=== PATIENT | male | born 1985 ===

== ENCOUNTER 2017-03-08 18:41 | Observation (INO) | payer BC ==
[2017-03-08 18:54] VITALS: BMI 32.5
[2017-03-08] MEDS ORDERED: Sodium Chloride 0.9% 1,000 ML IV STA (19:14)
[2017-03-08 19:43] LABS: BASO # 0.04 K/mm3 (0.0-2.0); BASO % 0.7 % (0.0-3.0); EOS % 0.2 % (1.5-5.0); GRAN # 2.71 (1.4-6.5); HEMOGLOBIN 15.5 g/dL (14.0-18.0); LYMPH # 2.3 (1.2-3.4); LYMPH % 41.6 % (22.0-35.0); MEAN CELL VOLUME 85.4 fl (80.0-105.0); MEAN CORPUSCULAR HEMOGLOBIN 30.1 pg (25.0-35.0); MEAN CORPUSCULAR HGB CONC 35.2 g/dl (31.0-37.0); MEAN PLATELET VOLUME 10.8 fl (7.0-11.0); MONO # 0.5 (0.1-0.6); MONO % 8.5 % (1.0-6.0); RBC 5.15 10^6/uL (3.5-6.1); RED CELL DISTRIBUTION WIDTH 13.2 % (11.5-14.5); WHITE BLOOD COUNT 5.5 10^3/ul (4.5-11.0)
--- NOTE | 2017-03-08 19:43 | ED PDOC ---
Arrival/HPI - General Chief Complaint: GI Problem Time Seen by Provider: 03/08/17 19:13 Historian: Patient - History of Present Illness Narrative History of Present Illness (Text): 03/08/17 19:40 31yr old male presents today with right-sided abdominal pain that started this morning. pt states that he developed sharp right sided pain that has been progressively worsening. pt states pain radiates to right side of back and across left side of abdomen. pt denies dysuria, denies urinary frequency. denies hematuria, denies testicular pain. pt states he has had prior abdominal infection 1 month ago and was hospitalized but cant remember what it was called. pt denies fevers/chills. pt c/o nausea and multiple episodes of vomiting. no other complaints. Past Medical History - Provider Review Nursing Documentation Reviewed: Yes - Travel History Have you recently traveled outside [place] w/in the past 3 mons?: No - Infectious Disease Hx of Infectious Diseases: None - Tetanus Immunization Tetanus Immunization: Unknown - Gastrointestinal Hx Gastroesophageal Reflux: Yes Hx Gastrointestinal Ulcer: Yes Other/Comment: H. Pylori - Psychiatric Hx Substance Use: No - Anesthesia Hx Anesthesia: No Family/Social History - Physician Review Nursing Documentation Reviewed: Yes Family/Social History: Unknown Family HX Smoking Status: Never Smoked Hx Alcohol Use: Yes Frequency of alcohol use: Socially Hx Substance Use: No Allergies/Home Meds Allergies/Adverse Reactions: Allergies No Known Allergies Allergy (Verified 03/08/17 18:54) Home Medications: Home Meds Medication Instructions Recorded Confirmed No Known Home Med 03/08/17 03/08/17 Review of Systems - Review of Systems Constitutional: absent: Fatigue, Fevers Respiratory: absent: SOB, Cough Cardiovascular: absent: Chest Pain, Palpitations Gastrointestinal: Abdominal Pain, Nausea, Vomiting. absent: Constipation, Diarrhea Genitourinary Male: absent: Dysuria, Frequency, Hematuria, Urinary Output Changes Musculoskeletal: Back Pain. absent: Arthralgias, Neck Pain Skin: absent: Rash, Pruritis Neurological: absent: Headache, Dizziness Psychiatric: absent: Anxiety, Depression, Suicidal Ideation Physical Exam Vital Signs Reviewed: Yes Vital Signs Temp Pulse Resp BP Pulse Ox 03/08/17 23:07 60 16 139/69 97 03/08/17 21:10 89 16 131/69 96 03/08/17 18:57 98.3 F 83 18 145/80 98 Temperature: Afebrile Blood Pressure: Normal Pulse: Regular Respiratory Rate: Normal Appearance: Positive for: Well-Appearing, Non-Toxic, Comfortable Pain Distress: None Mental Status: Positive for: Alert and Oriented X 3 - Systems Exam Head: Present: Atraumatic Mouth: Present: Moist Mucous Membranes Neck: Present: Normal Range of Motion Respiratory/Chest: Present: Clear to Auscultation, Good Air Exchange. No: Respiratory Distress, Accessory Muscle Use Cardiovascular: Present: Regular Rate and Rhythm, Normal S1, S2. No: Murmurs Abdomen: Present: Tenderness, Normal Bowel Sounds, Guarding, McBurney's Point Tender, Rovsing's Sign Present. No: Peritoneal Signs, Rebound Genitourinary Male: Present: Normal External Genitalia, Testicle Tenderness ( right sided testicular tenderness), Other (chaparoned by jostin parmar EMT). No: Penile Discharge, Masses, Erythema, Hernias, Testicle Swelling Back: Present: Normal Inspection. No: CVA Tenderness, Midline Tenderness, Paraspinal Tenderness Upper Extremity: Present: Normal Inspection, Normal ROM Lower Extremity: Present: Normal Inspection Neurological: Present: GCS=15, Speech Normal Skin: Present: Warm, Dry, Normal Color. No: Rashes Psychiatric: Present: Alert, Oriented x 3 Medical Decision Making ED Course and Treatment: 03/08/17 19:46 Patient is nontoxic well appearing with stable vital signs presenting with [ severe] abdominal pain CBC wnl CMP wnl Amylase wnl Lipase wnl Urinalysis + ketones, no leukocytes cxr: wnl CAT scan: FINDINGS: Limitations: Motion artifact - mild. Lower thorax: Few subpleural pulmonary nodules and/or scarring, up to 0.3 cm. ABDOMEN: Liver: < 0.5 cm lesion. Gallbladder and bile ducts: No calcified stones. No ductal dilation. Pancreas: No ductal dilation. No mass. Spleen: No splenomegaly. Adrenals: 2.7 x 2.2 x 1.6 cm lesion within RIGHT adrenal gland, indeterminate by CT criteria. Kidneys and ureters: Few small renal calculi. No hydronephrosis. Stomach and bowel: No definite mural thickening. No obstruction. Appendix: Normal caliber. No inflammation. PELVIS: Bladder: Unremarkable. Reproductive: Unremarkable as visualized. ABDOMEN and PELVIS: Intraperitoneal space: No significant fluid collection. No free air. Bones/joints: Bone islands. Early degenerative changes of spine. No acute fracture. Soft tissues: Unremarkable. Vasculature: Unremarkable. No aneurysm. Lymph nodes: Few subcentimeter short axis mesenteric lymph nodes, nonspecific. IMPRESSION: 1. No definite CT evidence of appendicitis. 2. Adrenal lesion. Recommend further evaluation with unenhanced abdominal CT or MR. Alternatively, if there is a history of malignancy, consider PET. 3. Liver lesion. For patients with low to average risk of malignancy, no further follow-up is necessary. For patients with high risk of malignancy (known malignancy that can metastasize or other risk factors), recommend follow-up abdominal CT or MR in 6 months. 4. Pulmonary nodules, nonspecific. Followup as clinically warranted. 5. Incidental/non-acute findings are described above. testicular US:FINDINGS: Right testicle: No mass. No torsion. Left testicle: No mass. No torsion. Epididymides: Unremarkable as visualized. Scrotum: Moderate right hydrocele with septations and internal echoes. Small left hydrocele. IMPRESSION: 1. No definite sonographic evidence of testicular torsion. 2. Complex right hydrocele. Hematocele or pyocele not excluded. Patient reassessment: despite toradol and 2 doses of morphine patient with continued abdominal pain. will admit the patient observational status for intractable abdominal pain, testicular pain; will send gc/Chlamydia sent. Discussed all results with patient in depth case discussed with dr. monzon covering for dr. gao; will admit observational status for intractable abdominal pain with testicular pain, adrenal lesion, liver lesion, pulmonary nodules. case discussed with resident; dr. son who will see patient at beside Impression: Abdominal pain, intractable, testicular pain, adrenal lesion, liver lesion, pulmonary nodules Observational status to med/surg - Lab Interpretations Lab Results: 03/08/17 19:20 03/08/17 19:20 Lab Results 03/08/17 19:45: Urine Color Yellow, Urine Appearance Clear, Urine pH 6.0, Ur Specific [place] 1.025, Urine Protein Negative, Urine Glucose (UA) Negative, Urine Ketones 15 H, Urine Blood Negative, Urine Nitrate Negative, Urine Bilirubin Negative, Urine Urobilinogen 0.2, Ur Leukocyte Esterase Negative 03/08/17 19:20: WBC 5.5, RBC 5.15, Hgb 15.5, Hct 44.0, MCV 85.4, MCH 30.1, MCHC 35.2, RDW 13.2, Plt Count 223, MPV 10.8, Gran % 49.0 L, Lymph % (Auto) 41.6 H, [place] % (Auto) 8.5 H, Eos % (Auto) 0.2 L, Baso % (Auto) 0.7, Gran # 2.71, Lymph # 2.3, [place] # 0.5, Eos # 0.0, Baso # 0.04 03/08/17 19:20: Sodium 142, Potassium 3.5 L, Chloride 104, Carbon Dioxide 25, Anion Gap 16, BUN 11, Creatinine 0.9, Est GFR ( Amer) > 60, Est GFR (Non- Af Amer) > 60, Random Glucose 88, Calcium 9.8, Total Bilirubin 1.6 H, AST 33, ALT 45, Alkaline Phosphatase 67, Total Protein 7.8, Albumin 4.7, Globulin 3.2, Albumin/Globulin Ratio 1.5, Amylase 82, Lipase 51 - RAD Interpretation Radiology Orders: 03/08/17 19:14 ABD & PELVIS IV CONTRAST ONLY [CT] Stat 03/08/17 19:45 CHEST PORTABLE [RAD] Stat 03/08/17 21:22 TESTES DUPLEX COMPLETE [US] Stat - Medication Orders Current Medication Orders: Discontinued Medications Sodium Chloride (Sodium Chloride 0.9%) 1,000 mls @ 999 mls/hr IV .Q1H1M STA Stop: 03/08/17 20:14 Last Admin: 03/08/17 19:36 Dose: 999 mls/hr eMAR Start Stop Document 03/08/17 19:36 EQ (Rec: 03/08/17 19:36 EQ [id number][place] Intravenous Solution Start Date 03/08/17 Start Time 19:36 Ketorolac Tromethamine (Toradol) 30 mg IVP STAT STA Stop: 03/08/17 19:15 Last Admin: 03/08/17 19:36 Dose: 30 mg MAR Pain Assessment Document 03/08/17 19:36 EQ (Rec: 03/08/17 19:37 EQ [id number]) Pain Reassessment Is this a pain reassessment? No Sleep Is patient sleeping during reassessment? No Presence of Pain Presence of Pain Yes IVP Administration Document 03/08/17 19:36 EQ (Rec: 03/08/17 19:37 EQ [id number]) Charges for Administration # of IVP Administrations 1 Morphine Sulfate (Morphine) 4 mg IVP STAT STA Stop: 03/08/17 20:54 Last Admin: 03/08/17 20:59 Dose: 4 mg [facility] Pain Assessment Document 03/08/17 20:59 EQ (Rec: 03/08/17 20:59 EQ [id number]) Pain Reassessment Is this a pain reassessment? No Sleep Is patient sleeping during reassessment? No Presence of Pain Presence of Pain Yes Pain Scale Used Pain Scale Used Numeric IVP Administration Document 03/08/17 20:59 EQ (Rec: 03/08/17 20:59 EQ [id number]) Charges for Administration # of IVP Administrations 1 Re-Assess: MAR Pain Assessment Document 03/08/17 21:59 HI (Rec: 03/08/17 23:31 HI [id number]) Pain Reassessment Is this a pain reassessment? Yes Sleep Is patient sleeping during reassessment? No Presence of Pain Presence of Pain No Morphine Sulfate (Morphine) 4 mg IVP STAT STA Stop: 03/08/17 23:06 Last Admin: 03/08/17 23:35 Dose: 4 mg [facility] Pain Assessment Document 03/08/17 23:35 HI (Rec: 03/08/17 23:35 HI [id number]) Pain Reassessment Is this a pain reassessment? No Sleep Is patient sleeping during reassessment? No Presence of Pain Presence of Pain Yes IVP Administration Document 03/08/17 23:35 HI (Rec: 03/08/17 23:35 HI [id number]) Charges for Administration # of IVP Administrations 1 Ondansetron HCl (Zofran Inj) 4 mg IVP STAT STA Stop: 03/08/17 19:15 Last Admin: 03/08/17 19:37 Dose: 4 mg IVP Administration Document 03/08/17 19:37 EQ (Rec: 03/08/17 19:37 EQ [id number]) Charges for Administration # of IVP Administrations 1 Disposition/Present on Arrival - Present on Arrival Any Indicators Present on Arrival: No History of DVT/PE: No History of Uncontrolled Diabetes: No Urinary Catheter: No History of Decub. Ulcer: No History Surgical Site Infection Following: None - Disposition Have Diagnosis and Disposition been Completed?: Yes Diagnosis: Intractable abdominal pain, Testicular pain, Hydrocele, Liver lesion, Lesion of adrenal gland, Pulmonary nodule Disposition: HOSPITALIZED Disposition Time: 02:01 Patient Plan: Observation Condition: FAIR Referrals: Thomas Gao MD [Primary Care Provider] - Follow up with primary Forms: [employer] (Yakut)
[2017-03-08 20:01] LABS: URINE BILIRUBIN NEGATIVE (NEGATIVE); URINE BLOOD NEGATIVE (NEGATIVE); URINE GLUCOSE (UA) NEGATIVE (NEGATIVE); URINE LEUKOCYTE ESTERASE NEGATIVE Leu/uL (NEGATIVE); URINE NITRATE NEGATIVE (NEGATIVE); URINE PROTEIN NEGATIVE mg/dL (<30 mg/dL); URINE UROBILINOGEN 0.2 E.U./dL (<1 E.U./dL)
[2017-03-08 20:08] LABS: URINE APPEARANCE CLEAR (CLEAR); URINE COLOR YELLOW (YELLOW)
[2017-03-08 20:11] LABS: ALB/GLOB RATIO 1.5 (1.1-1.8); ALBUMIN 4.7 g/dL (3.0-4.8); ALT/SGPT 45 U/L (7-56); AMYLASE 82 U/L (35-125); AST/SGOT 33 U/L (17-59); BLOOD UREA NITROGEN 11 mg/dL (7-21); CALCIUM 9.8 mg/dL (8.4-10.5); GFR AFRICAN-AMERICAN > 60; GFR NON-AFRICAN AMERICAN > 60; LIPASE 51 U/L (23-300)
[2017-03-08] MEDS ORDERED: Iohexol 350 MG/100 ML VIAL ONE (20:27)
[2017-03-08] MEDS ORDERED: Morphine 4 mg/ml ISec IVP STA ×2 (20:53→23:05)
--- NOTE | 2017-03-08 21:21 | CT ---
EXAM: CT Abdomen and Pelvis With Intravenous Contrast CLINICAL HISTORY: 31 years old, male; Pain; Abdominal pain; Localized; Right lower quadrant (rlq); Additional info: Rlq abd tenderness TECHNIQUE: Axial computed tomography images of the abdomen and pelvis with intravenous contrast. All CT scans at this facility use one or more dose reduction techniques, viz.: automated exposure control; ma/kV adjustment per patient size (including targeted exams where dose is matched to indication; i.e. head); or iterative reconstruction technique. Coronal and sagittal reformatted images were created and reviewed. CONTRAST: 94 mL of OMNI 350 administered intravenously. COMPARISON: No relevant prior studies available. FINDINGS: Limitations: Motion artifact - mild. Lower thorax: Few subpleural pulmonary nodules and/or scarring, up to 0.3 cm. ABDOMEN: Liver: < 0.5 cm lesion. Gallbladder and bile ducts: No calcified stones. No ductal dilation. Pancreas: No ductal dilation. No mass. Spleen: No splenomegaly. Adrenals: 2.7 x 2.2 x 1.6 cm lesion within RIGHT adrenal gland, indeterminate by CT criteria. Kidneys and ureters: Few small renal calculi. No hydronephrosis. Stomach and bowel: No definite mural thickening. No obstruction. Appendix: Normal caliber. No inflammation. PELVIS: Bladder: Unremarkable. Reproductive: Unremarkable as visualized. ABDOMEN and PELVIS: Intraperitoneal space: No significant fluid collection. No free air. Bones/joints: Bone islands. Early degenerative changes of spine. No acute fracture. Soft tissues: Unremarkable. Vasculature: Unremarkable. No aneurysm. Lymph nodes: Few subcentimeter short axis mesenteric lymph nodes, nonspecific. IMPRESSION: 1. No definite CT evidence of appendicitis. 2. Adrenal lesion. Recommend further evaluation with unenhanced abdominal CT or MR. Alternatively, if there is a history of malignancy, consider PET. 3. Liver lesion. For patients with low to average risk of malignancy, no further follow-up is necessary. For patients with high risk of malignancy (known malignancy that can metastasize or other risk factors), recommend follow-up abdominal CT or MR in 6 months. 4. Pulmonary nodules, nonspecific. Followup as clinically warranted. 5. Incidental/non-acute findings are described above.
--- NOTE | 2017-03-08 22:59 | US ---
EXAM: US Scrotum CLINICAL HISTORY: 31 years old, male; Pain; Scrotum pain; Additional info: Right sided testicular pain TECHNIQUE: Real-time ultrasound of the scrotum with color Doppler and image documentation. COMPARISON: No relevant prior studies available. FINDINGS: Right testicle: No mass. No torsion. Left testicle: No mass. No torsion. Epididymides: Unremarkable as visualized. Scrotum: Moderate right hydrocele with septations and internal echoes. Small left hydrocele. IMPRESSION: 1. No definite sonographic evidence of testicular torsion. 2. Complex right hydrocele. Hematocele or pyocele not excluded.
[2017-03-09] MEDS ORDERED: Sodium Chloride 0.9% 1,000 ML IV SCH (02:45)
--- NOTE | 2017-03-09 03:21 | CP.PCM.HP ---
<Jamel Ghotra - Last Filed: 03/09/17 05:00> History of Present Illness - History of Present Illness History of Present Illness: Mr. Charles Watkins is a 31 year old male with a past medical history significant for sciatica and hiatal hernia who presents with intermittent sharp right-sided abdominal pain with intermittent radiation to his right mid back with associated nausea and 10 episodes of nonbloody vomiting that started approximately 12 hours [employer]. Patient reports that this pain is constant and is an 8/10 and does not endorse any inciting event nor any sick contacts at work or at home. Patient endorses PO intolerance to both food and liquids throughout the day. Patient does report being seen by a billet heater at [facility] within the past month but only recalls this doctor telling him that he had a hiatal hernia. Patient denies any fever, chills, headache, changes in his vision, chest pain, palpitations, SOB, cough, wheezing, hematemesis, hematochezia, melena, diarrhea, constipation, pain/burning with urination, penile discharge, testicular swelling/tenderness, rashes or any numbness/tingling/weakness of any extremity. Of note, patient was found to have a lesion on his liver and adrenal gland on a CT abdomen/pelvis done in the ED as well as a small hydrocele of the right testicle via testicular ultrasound. Patient was also able to tolerate PO intake of solid food in the ED with no N/V or abdominal pain after he was given Zofran and Morphine. PMH: Sciatica and hiatal hernia PSH: Denies Family History: Denies Social History: Denies any tobacco or illicit drug use; endorses social alcohol use; lives at home with his who is his only sexual partner; works at "the store" Allergies: NKDA Home Medications: As per MAR PMD: Adaniel Present on Admission - Present on Admission Any Indicators Present on Admission: No Review of Systems - Review of Systems Review of Systems: As per HPI, otherwise negative Past Patient History - Infectious Disease Hx of Infectious Diseases: None - Tetanus Immunizations Tetanus Immunization: Unknown - Past Social History Smoking Status: Never Smoked - GASTROINTESTINAL Hx Gastroesophageal Reflux: Yes Other/Comment: H. Pylori - PSYCHIATRIC Hx Substance Use: No - ANESTHESIA Hx Anesthesia: No Meds Allergies/Adverse Reactions: Allergies Allergy/AdvReac Type Severity Reaction Status Date / Time No Known Allergies Allergy Verified 03/08/17 18:54 Physical Exam - Constitutional Appears: Non-toxic, No Acute Distress - Head Exam Head Exam: ATRAUMATIC, NORMAL INSPECTION, NORMOCEPHALIC - Eye Exam Eye Exam: EOMI, Normal appearance, PERRL Pupil Exam: NORMAL ACCOMODATION, PERRL - ENT Exam ENT Exam: Mucous Membranes Moist, Normal Exam - Neck Exam Neck exam: Positive for: Full Rom, Normal Inspection. Negative for: Lymphadenopathy, Meningismus, Tenderness, Thyromegaly - Respiratory Exam Respiratory Exam: Clear to Auscultation Bilateral, NORMAL BREATHING PATTERN. absent: Accessory Muscle Use, Chest Wall Tenderness, Decreased Breath Sounds, Prolonged Expiratory Phase, Rales, Rhonchi, Wheezes, Respiratory Distress, Stridor - Cardiovascular Exam Cardiovascular Exam: REGULAR RHYTHM, RRR, +S1, +S2. absent: Bradycardia, Tachycardia, Clicks, Diastolic murmur, Gallop, Irregular Rhythm, JVD, Rubs, +S4 , Systolic Murmur - GI/Abdominal Exam GI & Abdominal Exam: Normal Bowel Sounds, Soft, Tenderness (Mild TTP in RLQ and RUQ with no rebound tenderness or guarding). absent: Bruit, Diminished Bowel Sounds, Distended, Guarding, Hernia, Hyperactive Bowel Sounds, Hypoactive Bowel Sounds, Mass, Organomegaly, Pulsatile Mass, Rebound, Rigid - Exam Exam: Scrotal Swelling (Right testicle swollen and larger than left testicle) , Testicular Tenderness (Right). absent: Circumcision, NORMAL INSPECTION, Uretheral Discharge, Testicular Vertical Lie, Bladder Distension - Extremities Exam Extremities exam: Positive for: full ROM, normal capillary refill, normal inspection, pedal pulses present. Negative for: calf tenderness, joint swelling , pedal edema, tenderness - Back Exam Back exam: FULL ROM, NORMAL INSPECTION. absent: CVA tenderness (L), CVA tenderness (R), muscle spasm, paraspinal tenderness, rash noted, tenderness, vertebral tenderness - Neurological Exam Neurological exam: Alert, CN II-XII Intact, Normal Gait, Oriented x3 - Psychiatric Exam Psychiatric exam: Normal Affect, Normal Mood - Skin Skin Exam: Dry, Intact, Normal Color, Warm Results - Vital Signs Recent Vital Signs: Last Vital Signs Temp 98.3 F 03/08/17 18:57 Pulse 60 03/09/17 02:50 Resp 16 03/09/17 02:50 BP 134/87 03/09/17 02:50 Pulse Ox 100 03/09/17 02:50 - Labs Result Diagrams: 03/08/17 19:20 03/08/17 19:20 Assessment & Plan - Assessment and Plan (Free Text) Assessment: 31 year old male with a past medical history significant for sciatica and hiatal hernia who presents with intermittent sharp right-sided abdominal pain with intermittent radiation to his right mid back with associated nausea and 10 episodes of nonbloody vomiting that started approximately 12 hours [employer]. Of note , patient was found to have a lesion on his liver and adrenal gland on a CT abdomen/pelvis done in the ED as well as a small hydrocele of the right testicle via testicular ultrasound. Patient was also able to tolerate PO intake of solid food in the ED with no N/V or abdominal pain after he was given Zofran and Morphine. Plan: 1. Abdominal Pain with intractable N/V -CT Abdomen/Pelvis showing lesions on both the right adrenal gland and the liver but with no acute abnormalities of the rest of the GI tract -Zofran 4mg Q4H PRN for N/V -Toradol 15mg IVP Q4H PRN for mild pain control -Morphine 2mg Q4H PRN for moderate pain control -Clear liquid diet as patient tolerated PO intake in ED 2. Complex Right Testicular Hydrocele -Testicular U/S showing complex right hydrocele, with hematocele or pyocele not excluded GI Prophylaxis: Protonix DVT Prophylaxis: SCD's Patient seen and case discussed with attending, Dr. Perez - Date & Time Date: 03/09/17 Time: 03:24 Decision To Admit - Pt Status Changed To: Hospital Disposition Of: Observation - . Bed Request Type: Med/Surg <Rip Perez - Last Filed: 03/09/17 08:24> Results - Vital Signs Recent Vital Signs: Last Vital Signs Temp 97.3 F L 03/09/17 03:00 Pulse 62 03/09/17 03:00 Resp 20 03/09/17 03:00 BP 133/83 03/09/17 03:00 Pulse Ox 100 03/09/17 02:50 - Labs Result Diagrams: 03/09/17 05:30 03/09/17 05:30 Labs: Laboratory Results - last 24 hr 03/09/17 03/09/17 05:30 05:30 WBC 5.0 RBC 4.76 Hgb 14.2 Hct 41.0 L MCV 86.1 MCH 29.8 MCHC 34.6 RDW 13.3 Plt Count 197 MPV 11.1 H Gran % 27.2 L Lymph % (Auto) 59.6 H [place] % (Auto) 11.6 H Eos % (Auto) 1.0 L Baso % (Auto) 0.6 Gran # 1.37 L Lymph # 3.0 [place] # 0.6 Eos # 0.1 Baso # 0.03 Sodium 141 Potassium 3.8 Chloride 105 Carbon Dioxide 26 Anion Gap 14 BUN 13 Creatinine 0.9 Est GFR ( Amer) > 60 Est GFR (Non-Af Amer) > 60 Random Glucose 79 Calcium 9.0 Total Bilirubin 1.5 H AST 27 ALT 43 Alkaline Phosphatase 55 Total Protein 6.6 Albumin 3.8 Globulin 2.8 Albumin/Globulin Ratio 1.3 Assessment & Plan - Assessment and Plan (Free Text) Plan: discussed w/ resident at length went over meds labs tests xrays orders plans consults reviewed
[2017-03-09] MEDS: Morphine 2 mg/ml ISec IVP PRN ×4 (03:26→20:20)
[2017-03-09] MEDS ORDERED: Potassium Chloride 20 mEq ER Tab PO STA (04:31)
[2017-03-09 04:47] VITALS: RESP 20
[2017-03-09] MEDS ORDERED: Influenza Vaccine 60 mcg/0.5 mL SYR (4YR UP) IM ONE (04:47)
[2017-03-09] MEDS ORDERED: Pneumococcal 23-Valent Vaccine IM ONE (04:47)
[2017-03-09 06:11] LABS: BASO # 0.03 K/mm3 (0.0-2.0); BASO % 0.6 % (0.0-3.0); EOS # 0.1 (0.0-0.7); GRAN # 1.37 (1.4-6.5); GRAN % 27.2 % (50.0-68.0); HEMOGLOBIN 14.2 g/dL (14.0-18.0); LYMPH % 59.6 % (22.0-35.0); MEAN CELL VOLUME 86.1 fl (80.0-105.0); MEAN CORPUSCULAR HEMOGLOBIN 29.8 pg (25.0-35.0); MEAN CORPUSCULAR HGB CONC 34.6 g/dl (31.0-37.0); MEAN PLATELET VOLUME 11.1 fl (7.0-11.0); MONO # 0.6 (0.1-0.6); MONO % 11.6 % (1.0-6.0); RBC 4.76 10^6/uL (3.5-6.1); RED CELL DISTRIBUTION WIDTH 13.3 % (11.5-14.5)
[2017-03-09 06:28] LABS: ALB/GLOB RATIO 1.3 (1.1-1.8); ALBUMIN 3.8 g/dL (3.0-4.8); ALT/SGPT 43 U/L (7-56); AST/SGOT 27 U/L (17-59); BLOOD UREA NITROGEN 13 mg/dL (7-21); GFR AFRICAN-AMERICAN > 60; GFR NON-AFRICAN AMERICAN > 60
--- NOTE | 2017-03-09 08:11 | RAD ---
HISTORY: abdominal pain COMPARISON: No prior. FINDINGS: LUNGS: No active pulmonary disease. 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 PLEURA: No significant pleural effusion identified, no pneumothorax apparent. CARDIOVASCULAR: Normal. OSSEOUS STRUCTURES: No significant abnormalities. VISUALIZED UPPER ABDOMEN: Normal. OTHER FINDINGS: None. IMPRESSION: No acute cardiopulmonary disease appreciated.
[2017-03-09 08:52] VITALS: O2SAT 98
--- NOTE | 2017-03-09 12:23 | CP.PCM.CON ---
History of Present Illness - History of Present Illness History of Present Illness: Initial Nephrology Consultation: Assessment: Stable Right adrenal mass Rt hydrocoele Obesity Plan agree with checking aldosterone/renin and free plasma metanephrine outpatient dexamethasone suppression test to evaluate subclinical hypercortisolism above horomonal assay yearly x [address] adrenal gland in 3-6 months to assess size progression then annually for 1-2 years BP controlled. supplement electrolytes as needed. weight loss Further work up/management as per primary team Thanks for allowing me to participate in care of your patient. Will follow patient with you. Please call if any Qs Dr Michele Judd Office: [phone] Chief Complaint; pain abdomen HPI: Pt is a 31 M without significant past medical hx came with c/o pain abdomen and vomitting, found to have Rt adrenal mass hence renal consulted he feels better now. not aware about adrenal issues in past ROS: Cardiovascular: No chest pain. Pulmonary: No shortness of breath Gastrointestinal: denies abdominal pain now improved nausea. improved vomiting. Genitourinary: No pain while urinating. Denies blood in urine. All other negative Physical Examination: General Appearance: Comfortable, in no acute respiratory distress, co-operative . Vitals reviewed and noted as below Head; Atraumatic, normocephalic ENT: no ulcers no thrush. Tongue is midline. Oropharynx: no rash or ulcers. EYES: Pupils are equal, round and reactive to light accommodation. Eye muscles and extraocular movement intact. Sclera is anicteric. Neck; supple no lymphadenopathy, no thyromegaly or bruit Lungs: Normal respiratory rate/effort. Breath sounds bilateral equal and clear Heart: Normal rate. s1s2 normal. No rub or gallop. Extremities: no edema. No varicose veins Neurological: Patient is alert, awake and oriented to person, place and time. No focal deficit. Strength bilateral appropriate and equal Skin: Warm and dry. Normal turgor. No rash. Palpitation: Normal elasticity for age Abdomen: Abdomen is soft. Bowel sounds +. There is no abdominal tenderness, no guarding/rigidity no organomegaly Psych: normal insight and normal affect/mood MSK: no joint tenderness or swelling. Digits and nails normal, no deformity : kidney or bladder not palpable Labs/imaging reviewed. Past medical history, past surgical history, family history, social history, allergy reviewed and noted as below Family hx: no hx of CKD. Rest non-contributory Past Patient History - Infectious Disease Hx of Infectious Diseases: None - Tetanus Immunizations Tetanus Immunization: Unknown - Past Social History Smoking Status: Never Smoked - MUSCULOSKELETAL/RHEUMATOLOGICAL Hx Falls: No - GASTROINTESTINAL Hx Gastroesophageal Reflux: Yes Other/Comment: H. Pylori - PSYCHIATRIC Hx Substance Use: No - ANESTHESIA Hx Anesthesia: No Meds Allergies/Adverse Reactions: Allergies Allergy/AdvReac Type Severity Reaction Status Date / Time No Known Allergies Allergy Verified 03/08/17 18:54 - Medications Medications: Current Medications Sodium Chloride (Sodium Chloride 0.9%) 1,000 mls @ 100 mls/hr IV .Q10H [facility] Last Admin: 03/09/17 06:15 Dose: 100 mls/hr Ketorolac Tromethamine (Toradol) 15 mg IVP Q4 PRN PRN Reason: Pain, Mild (1-3) Morphine Sulfate (Morphine) 2 mg IVP Q4H PRN PRN Reason: Pain, moderate (4-7) Last Admin: 03/09/17 08:13 Dose: 2 mg Ondansetron HCl (Zofran Inj) 4 mg IVP Q4H PRN PRN Reason: Nausea/Vomiting Last Admin: 03/09/17 08:21 Dose: 4 mg Pantoprazole Sodium (Protonix Inj) 40 mg IVP DAILY [facility] Results - Vital Signs Recent Vital Signs: Last Vital Signs Temp 97.3 F L 03/09/17 07:30 Pulse 62 03/09/17 07:30 Resp 20 03/09/17 07:30 BP 133/83 03/09/17 07:30 Pulse Ox 98 03/09/17 07:30 - Labs Result Diagrams: 03/09/17 05:30 03/09/17 05:30 Labs: Laboratory Results - last 24 hr 03/09/17 03/09/17 03/09/17 05:30 05:30 05:30 WBC 5.0 RBC 4.76 Hgb 14.2 Hct 41.0 L MCV 86.1 MCH 29.8 MCHC 34.6 RDW 13.3 Plt Count 197 MPV 11.1 H Gran % 27.2 L Lymph % (Auto) 59.6 H [place] % (Auto) 11.6 H Eos % (Auto) 1.0 L Baso % (Auto) 0.6 Gran # 1.37 L Lymph # 3.0 [place] # 0.6 Eos # 0.1 Baso # 0.03 Sodium 141 Potassium 3.8 Chloride 105 Carbon Dioxide 26 Anion Gap 14 BUN 13 Creatinine 0.9 Est GFR ( Amer) > 60 Est GFR (Non-Af Amer) > 60 Random Glucose 79 Calcium 9.0 Total Bilirubin 1.5 H Direct Bilirubin 0.4 AST 27 ALT 43 Alkaline Phosphatase 55 Total Protein 6.6 Albumin 3.8 Globulin 2.8 Albumin/Globulin Ratio 1.3 03/09/17 11:00 WBC RBC Hgb Hct MCV MCH MCHC RDW Plt Count MPV Gran % Lymph % (Auto) [place] % (Auto) Eos % (Auto) Baso % (Auto) Gran # Lymph # [place] # Eos # Baso # Sodium Potassium Chloride Carbon Dioxide Anion Gap BUN Creatinine Est GFR ( Amer) Est GFR (Non-Af Amer) Random Glucose Calcium Total Bilirubin Direct Bilirubin 0.3 AST ALT Alkaline Phosphatase Total Protein Albumin Globulin Albumin/Globulin Ratio
[2017-03-09 12:44] LABS: BARBITURATES, UR NEGATIVE (NEGATIVE); BENZODIAZEPINES, UR NEGATIVE (NEGATIVE); PHENCYCLIDINE, UR NEGATIVE (NEGATIVE)
[2017-03-09 12:51] LABS: OPIATES, UR POSITIVE (NEGATIVE)
[2017-03-09] MEDS ORDERED: Gadodiamide 287 MG/ML VIAL (15ML) IV ONE (13:14)
--- NOTE | 2017-03-09 14:42 | MRI ---
PROCEDURE: MRI Abdomen with and without contrast HISTORY: Follow-up liver lesion an adrenal gland lesion COMPARISON: CT scan 03/08/2017. TECHNIQUE: Multisequence, multiplanar MR images of the abdomen with and without gadolinium contrast enhancement. 15 cc of Omniscan FINDINGS: LIVER: Unremarkable. GALLBLADDER: Unremarkable. SPLEEN: Unremarkable. PANCREAS: Unremarkable. ADRENALS: There is a 2 cm right adrenal lesion. This has characteristics of an adrenal adenoma. The lesion shows diminished signal intensity on out of phase imaging KIDNEYS: Unremarkable. AORTA: No aneurysm. ASCITES: None. PERITONEUM: Unremarkable. LYMPH NODES: Unremarkable. OTHER FINDINGS: None. IMPRESSION: Right-sided adrenal adenoma. No evidence of liver lesion
--- NOTE | 2017-03-09 14:43 | CP.PCM.CON ---
<Michelle Urena - Last Filed: 03/09/17 14:38> History of Present Illness - History of Present Illness History of Present Illness: seen and examined at the bedside earlier today, the chart was reviewed. Request for GI consult is for elevated bilirubin. HPI: This is a 31-year-old male with a past medical history of hiatal hernia, H. pylori that was treated, peptic ulcer disease and sciatica came to the emergency room with complaints of intermittent in right-sided sharp abdominal pain with radiation to back. He also complained of nausea and multiple episodes of nonbloody vomitus. The patient stated that he woke up not feeling well and in the morning he started having abdominal pain and nausea, he was at work he is a aching cheese sandwich and later on vomited. The patient also complains of lower abdominal pain and occasional dysuria, difficulty initiating urination, S2 forced urine out denies any hematuria. Patient denies any fever or chills, shortness of breath, or chest pain. He endorses that he had a recent endoscopy and colonoscopy on January 09, [address] oakley at [facility] for follow-up of peptic ulcer disease and reported that colonoscopy was "okay". His last bowel movement was yesterday and denies diarrhea no melena or bright red blood per rectum. On admission he had a A CT scan of abdomen and pelvis which reported lesions in the liver, adrenal lesion and renal calculi, no hydronephrosis. He did also have an ultrasound of the testes, patient does complain of right-sided scrotal discomfort and that reported a complex right hydrocephaly and no evidence of testicular torsion. Patient denies any weight loss, or loss of appetite.the patient did have regular food this morning and tolerated well. No acute overnight events. Past medical history: Hiatal hernia, peptic ulcer disease, H. pylori, sciatica Past surgical history: Denies Social history: Denies tobacco, drinks alcohol socially, denies any recreational drugs. Patient is and denies multiple sexual partners just his . Family history: Noncontributory Allergies: No known drug allergies Home medications: Reviewed as per MAR ROS: Systems reviewed with positive findings see HPI. Past Patient History - Infectious Disease Hx of Infectious Diseases: None - Tetanus Immunizations Tetanus Immunization: Unknown - Past Social History Smoking Status: Never Smoked - MUSCULOSKELETAL/RHEUMATOLOGICAL Hx Falls: No - GASTROINTESTINAL Hx Gastroesophageal Reflux: Yes Other/Comment: H. Pylori - PSYCHIATRIC Hx Substance Use: No - ANESTHESIA Hx Anesthesia: No Meds Allergies/Adverse Reactions: Allergies Allergy/AdvReac Type Severity Reaction Status Date / Time No Known Allergies Allergy Verified 03/08/17 18:54 - Medications Medications: Current Medications Sodium Chloride (Sodium Chloride 0.9%) 1,000 mls @ 100 mls/hr IV .Q10H [facility] Last Admin: 03/09/17 06:15 Dose: 100 mls/hr Ketorolac Tromethamine (Toradol) 15 mg IVP Q4 PRN PRN Reason: Pain, Mild (1-3) Morphine Sulfate (Morphine) 2 mg IVP Q4H PRN PRN Reason: Pain, moderate (4-7) Last Admin: 03/09/17 12:21 Dose: 2 mg Ondansetron HCl (Zofran Inj) 4 mg IVP Q4H PRN PRN Reason: Nausea/Vomiting Last Admin: 03/09/17 08:21 Dose: 4 mg Pantoprazole Sodium (Protonix Inj) 40 mg IVP DAILY [facility] Last Admin: 03/09/17 12:21 Dose: 40 mg Physical Exam - Constitutional Appears: No Acute Distress - Head Exam Head Exam: NORMOCEPHALIC - Eye Exam Eye Exam: Normal appearance. absent: Scleral icterus - ENT Exam ENT Exam: Mucous Membranes Moist - Neck Exam Neck exam: Positive for: Normal Inspection - Respiratory Exam Respiratory Exam: Clear to Auscultation Bilateral, NORMAL BREATHING PATTERN. absent: Respiratory Distress - Cardiovascular Exam Cardiovascular Exam: +S1, +S2 - GI/Abdominal Exam GI & Abdominal Exam: Normal Bowel Sounds, Soft, Tenderness (suprapubic/mid lower abdomen). absent: Guarding, Organomegaly, Rebound - Exam Exam: Scrotal Swelling (right side scrotal tenderness) - Extremities Exam Extremities exam: Positive for: pedal pulses present. Negative for: calf tenderness, pedal edema - Neurological Exam Neurological exam: Alert, Oriented x3 - Skin Skin Exam: Dry, Warm Results - Vital Signs Recent Vital Signs: Last Vital Signs Temp 97.3 F L 03/09/17 07:30 Pulse 62 03/09/17 07:30 Resp 20 03/09/17 07:30 BP 133/83 03/09/17 07:30 Pulse Ox 98 03/09/17 07:30 - Labs Result Diagrams: 03/09/17 05:30 03/09/17 05:30 Labs: Laboratory Results - last 24 hr 03/09/17 03/09/17 03/09/17 05:30 05:30 05:30 WBC 5.0 RBC 4.76 Hgb 14.2 Hct 41.0 L MCV 86.1 MCH 29.8 MCHC 34.6 RDW 13.3 Plt Count 197 MPV 11.1 H Gran % 27.2 L Lymph % (Auto) 59.6 H [place] % (Auto) 11.6 H Eos % (Auto) 1.0 L Baso % (Auto) 0.6 Gran # 1.37 L Lymph # 3.0 [place] # 0.6 Eos # 0.1 Baso # 0.03 Sodium 141 Potassium 3.8 Chloride 105 Carbon Dioxide 26 Anion Gap 14 BUN 13 Creatinine 0.9 Est GFR ( Amer) > 60 Est GFR (Non-Af Amer) > 60 Random Glucose 79 Calcium 9.0 Total Bilirubin 1.5 H Direct Bilirubin 0.4 AST 27 ALT 43 Alkaline Phosphatase 55 Total Protein 6.6 Albumin 3.8 Globulin 2.8 Albumin/Globulin Ratio 1.3 Urine Opiates Screen Urine Methadone Screen Ur Barbiturates Screen Ur Phencyclidine Scrn Ur Amphetamines Screen U Benzodiazepines Scrn U Oth Cocaine Metabols U Cannabinoids Screen 03/09/17 03/09/17 11:00 11:00 WBC RBC Hgb Hct MCV MCH MCHC RDW Plt Count MPV Gran % Lymph % (Auto) [place] % (Auto) Eos % (Auto) Baso % (Auto) Gran # Lymph # [place] # Eos # Baso # Sodium Potassium Chloride Carbon Dioxide Anion Gap BUN Creatinine Est GFR ( Amer) Est GFR (Non-Af Amer) Random Glucose Calcium Total Bilirubin Direct Bilirubin 0.3 AST ALT Alkaline Phosphatase Total Protein Albumin Globulin Albumin/Globulin Ratio Urine Opiates Screen Positive H Urine Methadone Screen Negative Ur Barbiturates Screen Negative Ur Phencyclidine Scrn Negative Ur Amphetamines Screen Negative U Benzodiazepines Scrn Negative U Oth Cocaine Metabols Negative U Cannabinoids Screen Negative Assessment & Plan - Assessment and Plan (Free Text) Assessment: Assessment: Lower abdominal pain,N/V Elevated bilirubin Liver and adrenal lesions on CT Pulmonary nodules Right testicle hydrocele Dysuria/UTI,Rule out prostatitis History of peptic ulcer disease History of H. pylori Plan: Continue regular diet Request for abdominal MRI with and without contrast to evaluate liver and adrenal pulmonary and urology evaluation Continue PPI Follow-up urine culture Request for hepatitis panel Trend LFTs DVT prophylaxis, and SCDs Discussed with patient and nursing staff. Thank you for this consult and for allowing us to participate in your patient's care, further recommendations based upon clinical course. Seen and discussed with Dr. Cervantes. <Dani Cervantes V - Last Filed: 03/09/17 22:22> Meds - Medications Medications: Current Medications Sodium Chloride (Sodium Chloride 0.9%) 1,000 mls @ 100 mls/hr IV .Q10H [facility] Last Admin: 03/09/17 06:15 Dose: 100 mls/hr Ketorolac Tromethamine (Toradol) 15 mg IVP Q4 PRN PRN Reason: Pain, Mild (1-3) Morphine Sulfate (Morphine) 2 mg IVP Q4H PRN PRN Reason: Pain, moderate (4-7) Last Admin: 03/09/17 20:20 Dose: 2 mg Ondansetron HCl (Zofran Inj) 4 mg IVP Q4H PRN PRN Reason: Nausea/Vomiting Last Admin: 03/09/17 08:21 Dose: 4 mg Pantoprazole Sodium (Protonix Inj) 40 mg IVP DAILY [facility] Last Admin: 03/09/17 12:21 Dose: 40 mg Results - Vital Signs Recent Vital Signs: Last Vital Signs Temp 97.8 F 03/09/17 16:00 Pulse 64 03/09/17 16:00 Resp 20 03/09/17 16:00 BP 126/77 03/09/17 16:00 Pulse Ox 98 03/09/17 16:00 - Labs Result Diagrams: 03/09/17 05:30 03/09/17 05:30 Labs: Laboratory Results - last 24 hr 03/09/17 03/09/17 03/09/17 05:30 05:30 05:30 WBC 5.0 RBC 4.76 Hgb 14.2 Hct 41.0 L MCV 86.1 MCH 29.8 MCHC 34.6 RDW 13.3 Plt Count 197 MPV 11.1 H Gran % 27.2 L Lymph % (Auto) 59.6 H [place] % (Auto) 11.6 H Eos % (Auto) 1.0 L Baso % (Auto) 0.6 Gran # 1.37 L Lymph # 3.0 [place] # 0.6 Eos # 0.1 Baso # 0.03 Sodium 141 Potassium 3.8 Chloride 105 Carbon Dioxide 26 Anion Gap 14 BUN 13 Creatinine 0.9 Est GFR ( Amer) > 60 Est GFR (Non-Af Amer) > 60 Random Glucose 79 Calcium 9.0 Total Bilirubin 1.5 H Direct Bilirubin 0.4 AST 27 ALT 43 Alkaline Phosphatase 55 Total Protein 6.6 Albumin 3.8 Globulin 2.8 Albumin/Globulin Ratio 1.3 Urine Opiates Screen Urine Methadone Screen Ur Barbiturates Screen Ur Phencyclidine Scrn Ur Amphetamines Screen U Benzodiazepines Scrn U Oth Cocaine Metabols U Cannabinoids Screen Hepatitis A IgM Ab Hep Bs Antigen Hep B Core IgM Ab Hepatitis C Antibody 03/09/17 03/09/17 03/09/17 11:00 11:00 11:00 WBC RBC Hgb Hct MCV MCH MCHC RDW Plt Count MPV Gran % Lymph % (Auto) [place] % (Auto) Eos % (Auto) Baso % (Auto) Gran # Lymph # [place] # Eos # Baso # Sodium Potassium Chloride Carbon Dioxide Anion Gap BUN Creatinine Est GFR ( Amer) Est GFR (Non-Af Amer) Random Glucose Calcium Total Bilirubin Direct Bilirubin 0.3 AST ALT Alkaline Phosphatase Total Protein Albumin Globulin Albumin/Globulin Ratio Urine Opiates Screen Positive H Urine Methadone Screen Negative Ur Barbiturates Screen Negative Ur Phencyclidine Scrn Negative Ur Amphetamines Screen Negative U Benzodiazepines Scrn Negative U Oth Cocaine Metabols Negative U Cannabinoids Screen Negative Hepatitis A IgM Ab Negative Hep Bs Antigen Negative Hep B Core IgM Ab Negative Hepatitis C Antibody Negative Attending/Attestation - Attestation I have personally seen and examined this patient.: Yes I have fully participated in the care of the patient.: Yes I have reviewed all pertinent clinical information: Yes Notes (Text): This is an addendum to GI consult report dictated by Michelle Urena APN.The patient was seen and examined earlier. Medical records, lab studies, imagings were reviewed. Last 24 hours events reviewed. Agreed with the above treatment plan as outlined in Michelle Urena APN's notes the with the addition of the following patient complaining of the wire abdominal discomfort. Intermittent episodes of dysuria right testicular discomfort. Physical exam abdomen soft and no tenderness The CT scan was reviewed a small hepatic lesion. Right adrenal lesion noticed. Patient is scheduled for MRI will follow up on that Also request a urological evaluation. Patient has been followed by Dr. Brennan, [facility] as an outpatient before. Patient did have 4 endoscopies before he also had colonoscopies in the past We will continue to closely follow his care and suggest further management based on the clinical course 03/09/17 22:20
--- NOTE | 2017-03-09 14:46 | MRI ---
PROCEDURE: MRI pelvis with and without contrast HISTORY: abdominal pain COMPARISON: None available. TECHNIQUE: Multiplanar, multi sequence MR images of the pelvis were obtained following administration of intravenous gadolinium contrast. 15 cc of Omniscan FINDINGS: BOWEL: Partially visualized rectosigmoid colon is grossly unremarkable. LYMPH NODES: No lymphadenopathy. BLADDER: Unremarkable. PROSTATE: Unremarkable. FREE FLUID: None. PELVIC BONES: Grossly unremarkable. OTHER FINDINGS: None. IMPRESSION: Unremarkable pre and post contrast enhanced MRI of the pelvis.
[2017-03-09 18:16] LABS: HEPATITIS B SURFACE AG NEGATIVE (NEGATIVE)
[2017-03-09 18:22] LABS: HEPATITIS A IGM NEGATIVE (NEGATIVE); HEPATITIS B CORE AB Negative (NEGATIVE)
[2017-03-09 18:34] LABS: HEPATITIS C ANTIBODY Negative (NEGATIVE)
[2017-03-09 20:32] VITALS: BP 126/77; PULSE 64; TEMP 97.8
[2017-03-10 06:36] LABS: BASO # 0.03 K/mm3 (0.0-2.0); BASO % 0.7 % (0.0-3.0); EOS # 0.1 (0.0-0.7); EOS % 1.7 % (1.5-5.0); GRAN # 1.3 (1.4-6.5); GRAN % 30.6 % (50.0-68.0); HEMOGLOBIN 13.7 g/dL (14.0-18.0); LYMPH # 2.5 (1.2-3.4); MEAN CELL VOLUME 86.5 fl (80.0-105.0); MEAN CORPUSCULAR HEMOGLOBIN 29.4 pg (25.0-35.0); MEAN PLATELET VOLUME 11.2 fl (7.0-11.0); MONO # 0.3 (0.1-0.6); RBC 4.66 10^6/uL (3.5-6.1); RED CELL DISTRIBUTION WIDTH 13.4 % (11.5-14.5); WHITE BLOOD COUNT 4.2 10^3/ul (4.5-11.0)
[2017-03-10 07:04] LABS: ALB/GLOB RATIO 1.4 (1.1-1.8); ALBUMIN 3.7 g/dL (3.0-4.8); ALT/SGPT 42 U/L (7-56); AST/SGOT 27 U/L (17-59); BLOOD UREA NITROGEN 15 mg/dL (7-21); CALCIUM 8.7 mg/dL (8.4-10.5); GFR AFRICAN-AMERICAN > 60; GFR NON-AFRICAN AMERICAN > 60
--- NOTE | 2017-03-10 07:51 | CON ---
DATE: 03/10/2017 PULMONARY CONSULTATION REFERRING PHYSICIAN: Dr. Nikolas Charles REASON FOR CONSULTATION: Rule out pulmonary nodules. HISTORY OF PRESENT ILLNESS: The patient is a 31-year-old male, with past medical history significant for hiatal hernia, H. pylori (treated), peptic ulcer disease, sciatica, who presents to [facility] with sharp right-sided abdominal pain, nausea, and multiple episodes of vomiting. In the emergency room, the patient had a CT scan of the abdomen and pelvis - which showed multiple abnormalities. The patient was thus admitted for additional evaluation. The patient denies shortness of breath at rest, dyspnea on exertion, cough, and/or sputum production. The patient also denies chest pain, coughing up of blood, or chest pain - made worse with deep respirations. There is no history of temperatures, chills or infectious exposure. There is no history of night sweats, weight loss or appetite change prior to the above events. No history of leg or calf pains. No history of syncope or diaphoresis. No history of recent travel or trauma. REVIEW OF SYSTEMS: No acute urinary symptoms. No new neurologic or musculoskeletal complaints. Rest of the review of systems negative. ALLERGIES: NO KNOWN ALLERGIES. SOCIAL HISTORY: Negative for tobacco, negative for alcohol. FAMILY HISTORY: No inheritable diseases. HOME MEDICATIONS: None. PHYSICAL EXAMINATION: GENERAL: The patient appears comfortable this morning. He is not short of breath at rest. VITAL SIGNS: Temperature is 97.8, pulse 64, respirations 18, blood pressure 126/77. Oxygen saturation on room air is 98%. HEENT: Normocephalic, atraumatic. NECK: No JVD. CARDIOVASCULAR: Positive S1, S2. No S3 gallop. LUNGS: Clear bilaterally. EXTREMITIES: No clubbing, cyanosis or edema. Calves are nontender to palpation. GI: Abdomen is soft. It is mildly tender in the right side of his abdomen to palpation. Bowel sounds are positive. SKIN: No acute rash. NEUROLOGIC: Exam limited at the present time. PERTINENT LABORATORY DATA: CT scan of the abdomen and pelvis was done and reviewed. There is no CT scan evidence of appendicitis. There is an adrenal opacity most consistent with adenoma. There is a questionable tiny subpleural nodule noted at the left base. This may be a scar. There is also a tiny questionable pulmonary nodule versus scar at the right base. There is no significant lymphadenopathy. CBC: White count 4.2, hemoglobin 13.7, hematocrit 40.3, platelets of 198,000. Complete metabolic profile: Chloride 108. Rest of the metabolic profile is within normal limits. IMPRESSION: 1. Abdominal pain, nausea and vomiting. 2. Mild anemia. 3. Probable dehydration. 4. Rule out tiny pulmonary nodule versus scar at the lung bases. PLAN: I did discuss the case with the nurse at length. I have also reviewed the chart at length, and discussed the case with the patient at length. The patient presented to [facility] with main complaints of increasing right-sided abdominal pain, and intractable nausea/vomiting. He was thus admitted for additional evaluation. I did review the CT scan of the abdomen and pelvis. On the lung windows, there are a few tiny pulmonary nodules versus scar at the lung bases. There are no other significant abnormalities. I will proceed with a dedicated CT scan of the chest for additional evaluation. At this point in time, the patient offers NO pulmonary symptoms. His lungs are clear. Oxygen saturation on room air is 98%. I would continue with the GI and renal evaluations. Inputs are noted. Clinical status of the patient is definitely improved. I will discuss the above with the attending physician. Thank you very much for this pulmonary consultation. Esteban Bahena MD MTDD
[2017-03-10] MEDS ORDERED: Iohexol 350 MG/100 ML VIAL ONE (07:56)
--- NOTE | 2017-03-10 09:16 | CT ---
PROCEDURE: CT Chest with and without contrast HISTORY: r/o lung nodules. COMPARISON: CT abdomen 03/08/2017 TECHNIQUE: Contiguous axial images were obtained through the chest with intravenous contrast enhancement. Sagittal and coronal reconstructions were performed. IV contrast: 100 cc of Omni 350 Radiation dose (DLP): 1081 mGy-cm. This CT exam was performed using one or more of the following dose reduction techniques: Automated exposure control, adjustment of the mA and/or kV according to patient size, and/or use of iterative reconstruction technique. FINDINGS: LUNGS: Clear lungs. Visualized airway clear. There are no pulmonary nodules MEDIASTINUM: Unremarkable thoracic aorta. No aneurysm or dissection. Normal sized heart. Main pulmonary artery unremarkable. No vascular congestion. No lymphadenopathy. PLEURA: No pleural fluid. No pneumothorax. BONES: No fracture. No destructive lesion. UPPER ABDOMEN: Grossly unremarkable. OTHER FINDINGS: None. IMPRESSION: Unremarkable contrast enhanced CT of the chest.
--- NOTE | 2017-03-10 12:09 | CP.PCM.PN ---
Subjective - Date & Time of Evaluation Date of Evaluation: 03/10/17 Time of Evaluation: 10:25 - Subjective Subjective: S&E at bedside, chart reviewed, No acute overnight events. No N/V , SOB or chest pain. Abdominal pain better. No c/o diarrhea or overt GI bleeding. Had chest ct this am, no acute findings. Objective - Vital Signs/Intake and Output Vital Signs (last 24 hours): Temp Pulse Resp BP Pulse Ox 97.8 F 64 20 126/77 98 03/09/17 16:00 03/09/17 16:00 03/09/17 16:00 03/09/17 16:00 03/09/17 16:00 Intake and Output: 03/10/17 03/10/17 06:59 18:59 Intake Total 1020 Balance 1020 - Medications Medications: Current Medications Sodium Chloride (Sodium Chloride 0.9%) 1,000 mls @ 100 mls/hr IV .Q10H [facility] Last Admin: 03/09/17 06:15 Dose: 100 mls/hr Ketorolac Tromethamine (Toradol) 15 mg IVP Q4 PRN PRN Reason: Pain, Mild (1-3) Morphine Sulfate (Morphine) 2 mg IVP Q4H PRN PRN Reason: Pain, moderate (4-7) Last Admin: 03/09/17 20:20 Dose: 2 mg Ondansetron HCl (Zofran Inj) 4 mg IVP Q4H PRN PRN Reason: Nausea/Vomiting Last Admin: 03/09/17 08:21 Dose: 4 mg Pantoprazole Sodium (Protonix Inj) 40 mg IVP DAILY [facility] Last Admin: 03/09/17 12:21 Dose: 40 mg - Labs Labs: 03/10/17 06:00 03/10/17 06:00 - Constitutional Appears: No Acute Distress - Eye Exam Eye Exam: Normal appearance. absent: Scleral icterus - ENT Exam ENT Exam: Mucous Membranes Moist - Neck Exam Neck Exam: Normal Inspection - Respiratory Exam Respiratory Exam: Clear to Ausculation Bilateral, NORMAL BREATHING PATTERN. absent: Respiratory Distress - Cardiovascular Exam Cardiovascular Exam: +S1, +S2 - GI/Abdominal Exam GI & Abdominal Exam: Soft, Tenderness, Normal Bowel Sounds. absent: Guarding, Rebound Additional comments: slight tenderness suprapubic region - Extremities Exam Extremities Exam: absent: Calf Tenderness, Pedal Edema - Neurological Exam Neurological Exam: Alert, Awake, Oriented x3 Assessment and Plan - Assessment and Plan (Free Text) Assessment: Assessment: Lower abdominal pain,N/V, improved Elevated bilirubin, resloved, hep panel negative. 2cm right Adrenal lesion s/p MRI, no lever lesion reported Pulmonary nodules Right testicle hydrocele Dysuria/UTI,Rule out prostatitis History of peptic ulcer disease History of H. pylori Plan: Continue regular diet Continue PPI Follow-up urine culture Trend LFTs DVT prophylaxis, and SCDs plan for dc home today, discuss with patient and medical team to have FU w/Dr. Lawson, pt due for FU. Fu Further FU for adrenal lesion as per medicine, spoke to team.( Dr. Sanchez/Dr. Clark) Seen and discussed with Dr. Cervantes.
--- NOTE | 2017-03-10 14:48 | CP.PCM.PN ---
Subjective - Date & Time of Evaluation Date of Evaluation: 03/10/17 Time of Evaluation: 10:00 - Subjective Subjective: Follow up Nephrology Consultation: Assessment: Stable Right adrenal mass Rt hydrocoele Obesity Plan agree with checking aldosterone/renin and free plasma metanephrine outpatient dexamethasone suppression test to evaluate subclinical hypercortisolism above horomonal assay yearly x [address] adrenal gland in 3-6 months to assess size progression then annually for 1-2 years BP controlled. supplement electrolytes as needed. weight loss Further work up/management as per primary team pt stable for d/c from renal perspective Thanks for allowing me to participate in care of your patient. patient advised to f/up in office with me. Please call if any Qs. d/w team and d/w Dr Michele Judd Office: [phone] Chief Complaint; pain abdomen HPI: Pt is a 31 M without significant past medical hx came with c/o pain abdomen and vomitting, found to have Rt adrenal mass hence renal consulted he feels better now. not aware about adrenal issues in past ROS: Cardiovascular: No chest pain. Pulmonary: No shortness of breath Gastrointestinal: denies abdominal pain now improved nausea. improved vomiting. Genitourinary: No pain while urinating. Denies blood in urine. All other negative Physical Examination: General Appearance: Comfortable, in no acute respiratory distress, co-operative . Vitals reviewed and noted as below Head; Atraumatic, normocephalic ENT: no ulcers no thrush. Tongue is midline. Oropharynx: no rash or ulcers. EYES: Pupils are equal, round and reactive to light accommodation. Eye muscles and extraocular movement intact. Sclera is anicteric. Neck; supple no lymphadenopathy, no thyromegaly or bruit Lungs: Normal respiratory rate/effort. Breath sounds bilateral equal and clear Heart: Normal rate. s1s2 normal. No rub or gallop. Extremities: no edema. No varicose veins Neurological: Patient is alert, awake and oriented to person, place and time. No focal deficit. Strength bilateral appropriate and equal Skin: Warm and dry. Normal turgor. No rash. Palpitation: Normal elasticity for age Abdomen: Abdomen is soft. Bowel sounds +. There is no abdominal tenderness, no guarding/rigidity no organomegaly Psych: normal insight and normal affect/mood MSK: no joint tenderness or swelling. Digits and nails normal, no deformity : kidney or bladder not palpable Labs/imaging reviewed. Past medical history, past surgical history, family history, social history, allergy reviewed and noted as below Family hx: no hx of CKD. Rest non-contributory Objective - Vital Signs/Intake and Output Vital Signs (last 24 hours): Temp Pulse Resp BP Pulse Ox 97.8 F 64 20 126/77 98 03/09/17 16:00 03/09/17 16:00 03/09/17 16:00 03/09/17 16:00 03/09/17 16:00 Intake and Output: 03/10/17 03/10/17 06:59 18:59 Intake Total 1020 Balance 1020 - Labs Labs: 03/10/17 06:00 03/10/17 06:00
--- NOTE | 2017-03-11 03:47 | CP.PCM.DIS ---
Provider - Provider Date of Admission: 03/09/17 01:36 Attending physician: Nikolas Charles MD Primary care physician: Thomas Franco MD Time Spent in preparation of Discharge (in minutes): 40 Diagnosis - Discharge Diagnosis (1) Adrenal incidentaloma Status: Chronic (2) Gastritis Status: Chronic (3) Hydrocele Status: Chronic Hospital Course - Lab Results Lab Results: Most Recent Lab Values WBC 4.2 10^3/ul (4.5-11.0) L 03/10/17 06:00 RBC 4.66 10^6/uL (3.5-6.1) 03/10/17 06:00 Hgb 13.7 g/dL (14.0-18.0) L 03/10/17 06:00 Hct 40.3 % (42.0-52.0) L 03/10/17 06:00 MCV 86.5 fl (80.0-105.0) 03/10/17 06:00 MCH 29.4 pg (25.0-35.0) 03/10/17 06:00 MCHC 34.0 g/dl (31.0-37.0) 03/10/17 06:00 RDW 13.4 % (11.5-14.5) 03/10/17 06:00 Plt Count 198 10^3/uL (120.0-450.0) 03/10/17 06:00 MPV 11.2 fl (7.0-11.0) H 03/10/17 06:00 Gran % 30.6 % (50.0-68.0) L 03/10/17 06:00 Lymph % (Auto) 59.0 % (22.0-35.0) H 03/10/17 06:00 [place] % (Auto) 8.0 % (1.0-6.0) H 03/10/17 06:00 Eos % (Auto) 1.7 % (1.5-5.0) 03/10/17 06:00 Baso % (Auto) 0.7 % (0.0-3.0) 03/10/17 06:00 Gran # 1.30 (1.4-6.5) L 03/10/17 06:00 Lymph # 2.5 (1.2-3.4) 03/10/17 06:00 [place] # 0.3 (0.1-0.6) 03/10/17 06:00 Eos # 0.1 (0.0-0.7) 03/10/17 06:00 Baso # 0.03 K/mm3 (0.0-2.0) 03/10/17 06:00 Sodium 141 mmol/L (132-148) 03/10/17 06:00 Potassium 4.3 mmol/L (3.6-5.0) 03/10/17 06:00 Chloride 108 mmol/L (98-107) H 03/10/17 06:00 Carbon Dioxide 25 mmol/L (21-33) 03/10/17 06:00 Anion Gap 13 (10-20) 03/10/17 06:00 BUN 15 mg/dL (7-21) 03/10/17 06:00 Creatinine 1.0 mg/dl (0.8-1.5) 03/10/17 06:00 Est GFR ( Amer) > 60 03/10/17 06:00 Est GFR (Non-Af Amer) > 60 03/10/17 06:00 Random Glucose 87 mg/dL (70-110) 03/10/17 06:00 Calcium 8.7 mg/dL (8.4-10.5) 03/10/17 06:00 Total Bilirubin 0.7 mg/dL (0.2-1.3) 03/10/17 06:00 Direct Bilirubin 0.3 mg/dL (0.0-0.4) 03/09/17 11:00 AST 27 U/L (17-59) 03/10/17 06:00 ALT 42 U/L (7-56) 03/10/17 06:00 Alkaline Phosphatase 49 U/L (38-126) 03/10/17 06:00 Total Protein 6.3 g/dL (5.8-8.3) 03/10/17 06:00 Albumin 3.7 g/dL (3.0-4.8) 03/10/17 06:00 Globulin 2.7 gm/dL 03/10/17 06:00 Albumin/Globulin Ratio 1.4 (1.1-1.8) 03/10/17 06:00 Amylase 82 U/L (35-125) 03/08/17 19:20 Lipase 51 U/L (23-300) 03/08/17 19:20 Cortisol AM Sample 3.7 ug/dL (4.46-22.7) L 03/09/17 11:00 Urine Color Yellow (YELLOW) 03/08/17 19:45 Urine Appearance Clear (CLEAR) 03/08/17 19:45 Urine pH 6.0 (4.7-8.0) 03/08/17 19:45 Ur Specific [place] 1.025 (1.005-1.035) 03/08/17 19:45 Urine Protein Negative mg/dL (<30 mg/dL) 03/08/17 19:45 Urine Glucose (UA) Negative mg/dL (NEGATIVE) 03/08/17 19:45 Urine Ketones 15 mg/dL (NEGATIVE) H 03/08/17 19:45 Urine Blood Negative (NEGATIVE) 03/08/17 19:45 Urine Nitrate Negative (NEGATIVE) 03/08/17 19:45 Urine Bilirubin Negative (NEGATIVE) 03/08/17 19:45 Urine Urobilinogen 0.2 E.U./dL (<1 E.U./dL) 03/08/17 19:45 Ur Leukocyte Esterase Negative [place]/uL (NEGATIVE) 03/08/17 19:45 Urine Opiates Screen Positive (NEGATIVE) H 03/09/17 11:00 Urine Methadone Screen Negative (NEGATIVE) 03/09/17 11:00 Ur Barbiturates Screen Negative (NEGATIVE) 03/09/17 11:00 Ur Phencyclidine Scrn Negative (NEGATIVE) 03/09/17 11:00 Ur Amphetamines Screen Negative (NEGATIVE) 03/09/17 11:00 U Benzodiazepines Scrn Negative (NEGATIVE) 03/09/17 11:00 U Oth Cocaine Metabols Negative (NEGATIVE) 03/09/17 11:00 U Cannabinoids Screen Negative (NEGATIVE) 03/09/17 11:00 Hepatitis A IgM Ab Negative (NEGATIVE) 03/09/17 11:00 Hep Bs Antigen Negative (NEGATIVE) 03/09/17 11:00 Hep B Core IgM Ab Negative (NEGATIVE) 03/09/17 11:00 Hepatitis C Antibody Negative (NEGATIVE) 03/09/17 11:00 - Hospital Course Hospital Course: Mr. Charles Watkins is a 31 year old male with a past medical history significant for gastritis s/p H.pylori treatments, upper and lower endoscopies, sciatica and hiatal hernia who presents with intermittent sharp right-sided abdominal pain with intermittent radiation to his right mid back with associated nausea and 10 episodes of nonbloody vomiting that started approximately 12 hours. Patient does report being seen by a zipper setter lockstitch at [facility] (Dr. Lawson) within the past month and remembers receiving a course of multiple antibiotics for an infection (H.pylori). Patient was able to tolerate PO intake of solid food in the ED with no N/V or abdominal pain after he was given Zofran and Morphine. Scrotal US showed No evidence of testicular torsion, Complex right hydrocele, Hematocele or pyocele not excluded. ABD CT: No evidence of appendicitis, Adrenal lesion, Liver lesion, Pulmonary nodules, nonspecific. MRI abd: 2cm R adrenal and no liver lesion. MRI pelvis was unremarkable. GI, Neprho, Uro and pulm were consulted. GI recommended to c/w PPI , regular diet and ordered hepatitis panel which was negative. Pulm orderd CT Chest which was negative for pulm nodules. Nephro recommended outpatient dexamethasone suppression test to evaluate adrenal incidentaloma, and f/u CT abd in 3-6 months. Patient feeling much better upon discharge and offered no complaints. Patient educated about his condition with his on the phone so she understands as well. Patient is prescribed zofran, protonix and carafate and educate about their use. will follow up with Dr. Charles and Dr. Lawson for continued workup. Patient is medically stable for discharge. Discharge Exam - Additional Findings Additional findings: - Constitutional Appears: Non-toxic, No Acute Distress - Head Exam Head Exam: ATRAUMATIC, NORMAL INSPECTION, NORMOCEPHALIC - Eye Exam Eye Exam: EOMI, Normal appearance, PERRL Pupil Exam: NORMAL ACCOMODATION, PERRL - ENT Exam ENT Exam: Mucous Membranes Moist, Normal Exam - Neck Exam Neck exam: Positive for: Full Rom, Normal Inspection. Negative for: Lymphadenopathy, Meningismus, Tenderness, Thyromegaly - Respiratory Exam Respiratory Exam: Clear to Auscultation Bilateral, NORMAL BREATHING PATTERN. absent: Accessory Muscle Use, Chest Wall Tenderness, Decreased Breath Sounds, Prolonged Expiratory Phase, Rales, Rhonchi, Wheezes, Respiratory Distress, Stridor - Cardiovascular Exam Cardiovascular Exam: REGULAR RHYTHM, RRR, +S1, +S2. absent: Bradycardia, Tachycardia, Clicks, Diastolic murmur, Gallop, Irregular Rhythm, JVD, Rubs, +S4 , Systolic Murmur - GI/Abdominal Exam GI & Abdominal Exam: Normal Bowel Sounds, Soft absent:Tenderness, Bruit, Diminished Bowel Sounds, Distended, Guarding, Hernia, Hyperactive Bowel Sounds, Hypoactive Bowel Sounds, Mass, Organomegaly, Pulsatile Mass, Rebound, Rigid - Exam Exam: absent: Circumcision, NORMAL INSPECTION, Uretheral Discharge, Testicular Vertical Lie, Bladder Distension - Extremities Exam Extremities exam: Positive for: full ROM, normal capillary refill, normal inspection, pedal pulses present. Negative for: calf tenderness, joint swelling , pedal edema, tenderness - Back Exam Back exam: FULL ROM, NORMAL INSPECTION. absent: CVA tenderness (L), CVA tenderness (R), muscle spasm, paraspinal tenderness, rash noted, tenderness, vertebral tenderness - Neurological Exam Neurological exam: Alert, CN II-XII Intact, Normal Gait, Oriented x3 - Psychiatric Exam Psychiatric exam: Normal Affect, Normal Mood - Skin Skin Exam: Dry, Intact, Normal Color, Warm Discharge Plan - Discharge Medications Prescriptions: Ondansetron ODT [Zofran ODT] 8 mg PO Q8 PRN #21 odt PRN Reason: Nausea/Vomiting Pantoprazole [Protonix] 40 mg PO DAILY 7 Days ect Sucralfate [Carafate] 1 gm PO QID #30 tablet - Follow Up Plan Condition: FAIR Disposition: HOME/ ROUTINE Instructions: Sucralfate (By mouth), Ondansetron (By mouth), Pantoprazole (By mouth), Gastritis (DC), Helicobacter Pylori (GEN), Diet for Ulcers and Gastritis (GEN) Additional Instructions: - please take the medications as prescribed - please follow up with Dr. Lawson within 1 week; consider a follow up MRI/CT of abdomen within a year for follow up of adrenal adenoma - please follow up with Dr. Charles within 1 week - if you continue to experience nausea/vomiting, abdominal pain, or fevers/ chills, please return to ER for evaluation Referrals: Nikolas Charles MD [Staff Provider] -
--- NOTE | 2017-03-13 08:40 | CON ---
DATE: 03/10/2017 CONSULTATION CHIEF COMPLAINT: Abdominal pain. HISTORY OF PRESENT ILLNESS: This is a 31-year-old male with past medical history of sciatica and hiatal hernia who presented with intermittent sharp right-sided abdominal pain, radiation to his back. The patient reports nausea and vomiting which started one day prior to admission. He reports the pain was at a level of 8/10. He denies any dysuria, urinary frequency, urgency or gross hematuria. He denies any history of kidney stones in the past. On imaging, the patient was noted to have a complex hydrocele and a consultation was then requested. PAST MEDICAL HISTORY: Significant for sciatica and hiatal hernia. MEDICATIONS: Currently include morphine, Protonix, Toradol, Zofran. ALLERGIES: NO KNOWN DRUG ALLERGIES. FAMILY HISTORY: Noncontributory for this admission. SOCIAL HISTORY: The patient denies smoking or significant EtOH use. REVIEW OF SYSTEMS: A 12-point review of systems was obtained. Positive for back pain. Positive for nausea and vomiting. Other positives as per the HPI. All other systems are negative. PHYSICAL EXAMINATION: GENERAL: The patient is awake, alert, answering questions. He is in no acute distress. VITAL SIGNS: He is afebrile with a temperature of 97.8, BP 126/77, pulse of 64, respirations of 20. NECK: Supple. There is no adenopathy. CHEST: Revealed normal inspiratory effort. CARDIAC: Showed positive S1, S2. There is no peripheral edema. ABDOMEN: Soft, nontender, nondistended. There is no hepatosplenomegaly. There is no costovertebral angle tenderness. : The phallus is normal. Scrotum is normal. Testes are bilaterally descended, nontender, no masses. Epididymis are normal. There is no appreciable clinical hydrocele noted. EXTREMITIES: No cyanosis or edema noted. DIAGNOSTIC STUDIES: On radiologic exam, the patient had a CT scan of the abdomen and pelvis. There is a small indeterminate lesion in the right adrenal gland. There are few small renal calculi. No hydronephrosis. Bladder was unremarkable. There is a liver lesion. Patient was then sent for a scrotal ultrasound which showed the right testicle have no mass or torsion, left testicle have no mass or torsion. There was a moderate right hydrocele with septations in internal echoes and a small left hydrocele reported. Patient also had a pelvic MRI and abdominal MRI. The pelvic MRI showed the bladder was unremarkable. Prostate was unremarkable. LABORATORY EXAMINATION: Urinalysis is negative for blood, negative for nitrites, negative for leukocyte esterase. WBC count 4.2, creatinine 1.0 with a GFR greater than 60. IMPRESSION AND PLAN: This is a 31-year-old male admitted with back pain, nausea and vomiting. The patient does not appear to have renal colic. There are no ureteral calculi. There is no noted hydronephrosis. As for the ultrasound finding of a complex right hydrocele, clinically this does not appear to be significant. There is no large hydrocele noted. I do not feel this is related to the patient's acute back pain and I would continue to look for an etiology of that. Plan would be the patient should have outpatient urologic followup in about 6 months to reexamine him and consider a repeat ultrasound; however, no acute urologic intervention appears necessary at this time. Thank you for allowing me to participate in the care of this patient. Meliton Pettit MD
== END 2017-03-10 12:13 | disposition home or self-care (01) ==
LOC: ED 18:41 → ERH 03-09 01:36 → 5RNO 03-09 03:11
PROVIDERS: ADMIT Family Medicine; ATTEND Internal Medicine
DX: E27.9 Disorder of adrenal gland, unspecified (principal); K29.70 Gastritis, unspecified, without bleeding; N43.3 Hydrocele, unspecified; M54.30 Sciatica, unspecified side; K44.9 Diaphragmatic hernia without obstruction or gangrene; R91.8 Other nonspecific abnormal finding of lung field; D64.9 Anemia, unspecified; Z68.32 Body mass index [BMI] 32.0-32.9, adult; E66.9 Obesity, unspecified; Z87.11 Personal history of peptic ulcer disease
CPT/HCPCS: 36415; 71045; 71270; 72197; 74177; 74183; 80053; 80074; 81003; 82024; 82088; 82150; 82248; 82533; 83690; 83835; 84244; 85025; 87491; 87591; 93975; 96374; 96375; 96376; 99285; A9579; C9113; G0378; G0480; J1885; J2270; J2405; J7040; Q9967